=== PATIENT | male | born 1930 | race Caucasian/White ===

== ENCOUNTER 2018-09-07 14:33 | Observation (INO) ==
[2018-09-07] MEDS ORDERED: 0.9 % Sodium Chloride 1,000 ML IVC ONE (15:37)
--- NOTE | 2018-09-07 15:40 | Emergency Department Note ---
Disposition Clinical Impression: Generalized weakness, Unable to ambulate Disposition: Admitted As Inpatient Condition: Fair Referrals: Nancy Shepherd [employer] [Primary Care Provider] - Forms: ED Satisfaction Letter, Work/School Release Time of Disposition: 17:19 General Adult HPI - General Chief complaint: ED General Medical Stated complaint: ELEVATED BP Time Seen by Provider: 09/07/18 15:14 Source: patient, family Mode of arrival: EMS Limitations: no limitations Nursing Notes Reviewed: Yes Vital Signs Reviewed: Yes - History of Present Illness HPI Narrative: Patient presents with his from assisted living. Reports that there was general weakness since this morning. They went to lunch and he was having typically walking and having to be helped. There is no report of a focal neurologic deficit but rather some generalized weakness. He got to the table and he was all shaky. He wanted to go to the bathroom so they got him up to walk to the bathroom is really unsteady and he got to the bathroom and sat down but could not get himself up off the toilet and had to be helped up. Try to walk back to the other room but seemed to tire out shelter so they had to get a chair and sat him down and then they called the squad. does not report patient had been sick in any way over the past few days. Patient has some dementia and is not real helpful with answers but says that he normally has some confusion although its seems to be a little bit worse today. Definitely he does not have the weakness that he has today. Pt Subjective Complaint: Generalized weakness Onset (ago): hour(s) (Since late this morning) Location: other (Generalized) Pain Severity: severe (Had trouble walking and could not get himself up off the toilet.) Pain Scale: 0 Consistency: constant Improves with: nothing Worsens with: movement Associated symptoms: Reports: denies other symptoms Treatments Prior to Arrival: none - Related Data Home Medications Medication Instructions Recorded Confirmed Lisinopril [Zestril] 40 mg PO DAILY 07/28/16 09/07/18 Multivitamin [Multivitamins] 1 tab PO DAILY 07/28/16 09/07/18 Oxybutynin Chloride [Ditropan Xl] 5 mg PO DAILY 07/28/16 09/07/18 Terazosin HCl 2 mg PO HS 07/28/16 09/07/18 Aspirin [Lo-Dose Aspirin EC] 81 mg PO DAILY 09/07/18 09/07/18 Lansoprazole [Prevacid] 15 mg PO QAM 09/07/18 09/07/18 Metoprolol [Lopressor] 25 mg PO DAILY 09/07/18 09/07/18 Allergies Allergy/AdvReac Type Severity Reaction Status Date / Time atorvastatin [From Lipitor] AdvReac Nausea Verified 05/16/17 10:54 All systems ED: reviewed and negative except as stated. Constitutional: Denies: fever, chills ENT ED: Denies: ear pain, throat pain, congestion Cardiovascular: Denies: chest pain, palpitations Respiratory: Denies: cough, dyspnea, wheezes Gastrointestinal: Denies: abdominal pain, nausea, vomiting, diarrhea Musculoskeletal: Denies: back pain Integumentary: Denies: rash Neurological: Reports: weakness (Generalized). Denies: headache Past Medical History - Past Medical History Attestation: Yes The following information was validated with the patient. Source: old records reviewed, obtained from family, nursing notes reviewed Medical history: Reports: hypertension Psychiatric history: Reports: no psych history - Social History Smoking Status: Never smoker Smokeless Tobacco Status: No Alcohol use: Reports: none Drug use: Reports: none Physical Exam - General Limitations: no limitations General appearance: alert, in no apparent distress - Head Head exam: atraumatic, normocephalic, normal inspection - Eye Eye exam: Present: normal appearance, PERRL, EOMI. Absent: scleral icterus, conjunctival injection - ENT ENT exam: normal exam, normal oropharynx, mucous membranes moist, normal external ear exam - Neck Neck exam: Present: normal inspection, full ROM. Absent: meningismus - Chest Chest inspection: Present: normal inspection, symmetric chest wall rise. Absent: tenderness - Respiratory Respiratory exam: Present: normal lung sounds bilaterally. Absent: respiratory distress, wheezes - Cardiovascular Cardiovascular exam: Present: regular rate, normal rhythm, normal heart sounds - Abdominal Exam Abdominal exam: Present: soft, Non-Tender, normal bowel sounds. Absent: mass, pulsatile mass - Extremities Exam Extremities exam: Present: normal inspection. Absent: pedal edema - Neurological Exam Neurological exam: Present: alert, oriented X3, CN II-XII intact. Absent: motor sensory deficit - Psychiatric Psychiatric exam: Present: normal affect, normal mood - Skin Skin exam: Present: warm, dry. Absent: rash Course Course Narrative: Patient presents with generalized weakness. Also found have elevated blood pressure earlier today and that is continued here in the department. He does not register focal complaint in the white does not note any prodromal illnesses. He just got this generalized weakness today that was severe enough that he could not get himself up off the toilet and have her through the house he had to stop and sit down in a chair because he could not make it. My physical exam does not reveal any focal neurologic deficit to be concerning for stroke. The examination does not identify anything else either. I am going to a workup for general weakness. Disposition will be based on diagnostic results and reevaluation. - Reevaluation(s) Reevaluation #1: Patient remains weak. We tried to get him up to use the bedside commode he needed help just to do that. At this point I do not have a clear etiology for his weakness. He does have an elevated BNP and some vascular congestion on the chest x-ray but clinically there is no indication of overt heart failure. His EKG looks okay and his heart enzymes are negative. He does have an elevated white count and a temperature of 99 8 but I do not find any focus of infection on exam and his chest x-ray was clear for infection and his urine was clear. I did do blood cultures. He is too weak to go home but the cause of his weakness is yet to declare itself so he needs to be admitted to the hospital. I have already spoken with the hospitalist who is accepted him for admission. Time: 17:18 - Consultations Consultation #1: Dr. Amaya, hospitalist - I discussed the case with the hospitalist. He is accepting the patient for admission to the hospital. Time: 17:15 Vital Signs Temperature 99.8 F H 09/07/18 14:34 Pulse Rate 82 09/07/18 14:34 Respiratory Rate 16 09/07/18 14:34 Blood Pressure 184/83 09/07/18 14:34 O2 Sat by Pulse Oximetry 94 09/07/18 14:34 Temperature 99.6 F 09/07/18 17:11 Pulse Rate 73 09/07/18 17:11 Respiratory Rate 18 09/07/18 17:11 Blood Pressure 195/80 09/07/18 17:11 O2 Sat by Pulse Oximetry 95 09/07/18 17:11 Oxygen Delivery Oxygen Delivery Room Air Medical Decision Making - Medical Records Medical records reviewed: Yes I reviewed the patient's medical records. - Lab Data Lab results reviewed: Yes I reviewed the patient's lab results. Result diagrams: 09/07/18 16:04 09/07/18 16:04 Lab Results 09/07/18 09/07/18 09/07/18 Range/Units 16:04 16:04 16:04 WBC 15.8 H (4.3-11.1) K/mcL RBC 3.61 L (4.19-5.50) M/mcL Hgb 11.4 L (12.9-16.9) g/dL Hct 33.1 L (37.5-50.1) % MCV 91.7 (83.0-100.0) fL MCH 31.6 (28.0-33.3) pg MCHC 34.4 (31.6-35.5) g/dL RDW 12.4 (11.5-14.5) % Plt Count 209 (140-400) K/mcL MPV 9.5 (9.4-12.4) fL Immature Gran % 2.0 (0-4) % Seg Neutrophils % 81.3 % Lymphocytes % 3.3 % Monocytes % 13.3 % Eosinophils % 0.0 % Basophils % 0.1 % Neutrophils # 12.9 H (1.6-8.9) K/mcL Lymphocytes # 0.5 L (0.6-4.6) K/mcL Monocytes # 2.1 H (0.0-1.3) K/mcL Eosinophils # 0.0 (0.0-0.6) K/mcL Basophils # 0.0 (0.0-0.2) K/mcL Sodium 130 L (136-145) mEq/L Potassium 3.8 (3.5-5.1) mEq/L Chloride 95 L (98-107) mEq/L Carbon Dioxide 26 (23-29) mEq/L BUN 21 (8-23) mg/dL Creatinine 1.03 (0.70-1.30) mg/dL Est GFR ( Amer) > 60 (> 60) Est GFR (Non-Af Amer) > 60 (> 60) BUN/Creatinine Ratio 20 (6-26) Glucose 122 H (70-105) mg/dL Calculated Osmolality 274 L (280-300) Lactic Acid 0.6 (0.5-2.2) mmol/L Calcium 9.1 (8.6-10.3) mg/dL Troponin I < 0.03 (< 0.04) ng/mL B-Natriuretic Peptide (Less than 100) pg/mL Urine Color (Yellow) Urine Clarity (Clear) Urine pH (5.0-8.0) pH Units Ur Specific [place] (1.010-1.025) Urine Protein (Neg-Trace) mg/dL Urine Glucose (UA) (Normal) mg/dL Urine Ketones (Negative) mg/dL Urine Blood (Negative) Urine Nitrite (Negative) Urine Bilirubin (Negative) Urine Urobilinogen (Normal) mg/dL Ur Leukocyte Esterase (Negative) Urine Microscopic RBC (0-3) per hpf Urine Microscopic WBC (0-3) per hpf Ur Squamous Epith Cells (None-Few) per lpf Urine Mucus (Few) Ur Culture Indicated? (NO) 09/07/18 09/07/18 Range/Units 16:04 16:57 WBC (4.3-11.1) K/mcL RBC (4.19-5.50) M/mcL Hgb (12.9-16.9) g/dL Hct (37.5-50.1) % MCV (83.0-100.0) fL MCH (28.0-33.3) pg MCHC (31.6-35.5) g/dL RDW (11.5-14.5) % Plt Count (140-400) K/mcL MPV (9.4-12.4) fL Immature Gran % (0-4) % Seg Neutrophils % % Lymphocytes % % Monocytes % % Eosinophils % % Basophils % % Neutrophils # (1.6-8.9) K/mcL Lymphocytes # (0.6-4.6) K/mcL Monocytes # (0.0-1.3) K/mcL Eosinophils # (0.0-0.6) K/mcL Basophils # (0.0-0.2) K/mcL Sodium (136-145) mEq/L Potassium (3.5-5.1) mEq/L Chloride (98-107) mEq/L Carbon Dioxide (23-29) mEq/L BUN (8-23) mg/dL Creatinine (0.70-1.30) mg/dL Est GFR ( Amer) (> 60) Est GFR (Non-Af Amer) (> 60) BUN/Creatinine Ratio (6-26) Glucose (70-105) mg/dL Calculated Osmolality (280-300) Lactic Acid (0.5-2.2) mmol/L Calcium (8.6-10.3) mg/dL Troponin I (< 0.04) ng/mL B-Natriuretic Peptide 612 H (Less than 100) pg/mL Urine Color Yellow (Yellow) Urine Clarity Clear (Clear) Urine pH 7.5 (5.0-8.0) pH Units Ur Specific [place] 1.020 (1.010-1.025) Urine Protein 100 H (Neg-Trace) mg/dL Urine Glucose (UA) Normal (Normal) mg/dL Urine Ketones Trace H (Negative) mg/dL Urine Blood Trace-lysed H (Negative) Urine Nitrite Negative (Negative) Urine Bilirubin Negative (Negative) Urine Urobilinogen Normal (Normal) mg/dL Ur Leukocyte Esterase Negative (Negative) Urine Microscopic RBC 3-5 H (0-3) per hpf Urine Microscopic WBC 0-3 (0-3) per hpf Ur Squamous Epith Cells Few (None-Few) per lpf Urine Mucus Few (Few) Ur Culture Indicated? NO (NO) - Radiology Data Radiology results reviewed: Yes I reviewed the patient's radiology results. - EKG Data EKG #1 EKG attestation: Yes I reviewed and interpreted this EKG. EKG results narrative: Twelve-lead EKG performed at 2:45 PM. Ordered, reviewed and interpreted by ED physician shows sinus rhythm at a rate of 82. Normal axis. Good R-wave progression across the precordium. No acute ischemic changes. Intervals are within normal limits.
[2018-09-07 16:12] LABS: Basophils % 0.1 %; Hematocrit 33.1 % (37.5-50.1); Hemoglobin 11.4 g/dL (12.9-16.9); Lymphocytes # 0.5 K/mcL (0.6-4.6); Lymphocytes % 3.3 %; Mean Corpuscular HGB Conc 34.4 g/dL (31.6-35.5); Mean Corpuscular Hemoglobin 31.6 pg (28.0-33.3); Mean Corpuscular Volume 91.7 fL (83.0-100.0); Mean Platelet Volume 9.5 fL (9.4-12.4); Monocytes # 2.1 K/mcL (0.0-1.3); Monocytes % 13.3 %; Neutrophils # 12.9 K/mcL (1.6-8.9); Platelet Count 209 K/mcL (140-400); Red Blood Count 3.61 M/mcL (4.19-5.50); Red Cell Distribution Width 12.4 % (11.5-14.5); Segmented Neutrophils % 81.3 %
[2018-09-07 16:31] LABS: BUN/Creatinine Ratio 20 (6-26); Blood Urea Nitrogen 21 mg/dL (8-23); Calcium 9.1 mg/dL (8.6-10.3); Carbon Dioxide 26 mEq/L (23-29); Chloride 95 mEq/L (98-107); Glucose 122 mg/dL (70-105); Osmolality,Calculated 274 (280-300); Potassium 3.8 mEq/L (3.5-5.1); Sodium 130 mEq/L (136-145); eGFR For Non-African Americans > 60 (> 60)
[2018-09-07 16:32] LABS: Troponin I < 0.03 ng/mL (< 0.04)
[2018-09-07 17:03] LABS: Bilirubin,Urine Negative (Negative); Blood,Urine Trace-lysed (Negative); Clarity,Urine Clear (Clear); Color,Urine Yellow (Yellow); Glucose,Urine (UA) Normal (Normal); Ketones,Urine Trace mg/dL (Negative); Leukocyte Esterase,Urine Negative (Negative); Nitrite,Urine Negative (Negative); PH,Urine 7.5 pH Units (5.0-8.0); Protein,Urine 100 mg/dL (Neg-Trace); Urobilinogen,Urine Normal (Normal)
[2018-09-07 17:11] LABS: Mucus,Urine Few (Few); Squamous Epithelial Cell,Urine Few per lpf (None-Few); WBC,Urine 0-3 per hpf (0-3)
[2018-09-07] MEDS ORDERED: Lisinopril 20 MG TABLET PO STA (17:14)
[2018-09-07] MEDS ORDERED: Naloxone 0.4 MG/ML INJ IVP PRN (17:55)
[2018-09-07] MEDS ORDERED: Levofloxacin 750 MG/150 ML 750 MG/150 ML BAG IVPB ONE (17:57)
[2018-09-07] MEDS ORDERED: Acetaminophen 325 MG TABLET PO PRN (18:01)
[2018-09-08] MEDS: Lisinopril 20 MG TABLET PO SCH (08:46)
[2018-09-08] MEDS: Multivit/Ca/Min/Fe/FA 1 TAB TABLET PO SCH (08:46)
[2018-09-08] MEDS: Aspirin Enteric Coated 81 MG Tablet PO SCH (08:46)
--- NOTE | 2018-09-08 12:28 | Internal Med History&Physical ---
Date of Encounter: 09/08/18 Time of Encounter: 11:45 Assessment and Plan (1) Generalized weakness Current visit: Yes Status: Acute Suspect multifactorial etiology including underlying debility with deconditioning, infection, and possible heart failure. He will have PT and OT evaluation. (2) Neutrophilic leukocytosis Current visit: Yes Status: Acute Etiology not obvious. He had fever of 100.4 F last evening with small amount of diarrhea possibly indicating viral gastroenteritis. Recheck labs in a.m. (3) Anemia Current visit: Yes Status: Acute Present intermittently since January 2015 labs. Anemia testing will be done. Qualifiers: Anemia type: unspecified type Qualified Code(s): D64.9 - Anemia, unspecified (4) Elevated brain natriuretic peptide (BNP) level Current visit: Yes Status: Acute Recheck labs in a.m. Will defer on echocardiogram at this time since he is asymptomatic and plans to move to [place] within the next 5 days. (5) Parkinsons disease Current visit: Yes Status: Acute Medication not needed at this time. PT and OT evaluation will be done to assess stability, strength, and ambulatory ability. (6) Memory loss Current visit: Yes Status: Acute He and his agree his memory has declined in the past year. MMSE will be ordered. Internal Medicine - H&P: HPI Chief complaint: Weakness Admitted From: Emergency Dept Plans for Post Hospital Care: Home History of present illness: Mr. Clifton is a 88 year old male who was brought to emergency room after his reports he had noticeable weakness onset approximately lunchtime the day of admission. He had observable "shaking" while trying to feed himself soup. He had difficulty ambulating to the bathroom and could not stand up from the toilet in his own strength. He was brought to emergency room and evaluated and was found to have leukocytosis with left shift, anemia, and elevated BN peptide. He was admitted to [facility] floor for ongoing care needs. He denies previous similar episodes. He had evidence of 2 small previous CVAs on head CT in emergency room. He was unaware clinically of these past strokes. Brain MRI 04/09/2017 did not show these lesions. He was placed on aspirin 81 mg daily by a neurologist in March 2017 for CVA prophylaxis. He denies seizures or syncope. He reports he has fallen twice in the past year. He t ypically uses a cane for ambulation. Past Med Surg Social Fam HX - Past Medical History Medical history: hypertension Psychiatric history: no psych history - Past Surgical History Additional surgical history: bilat shoulder surgeries. hernia repair. some kind of prostate surgery - Social History Smoking Status: Never smoker Smokeless Tobacco Status: No Alcohol use: none Drug use: none Internal Medicine - H&P: Meds Lisinopril [Zestril] 40 mg PO DAILY 07/28/16 [History] Multivitamin [Multivitamins] 1 tab PO DAILY 07/28/16 [History] Oxybutynin Chloride [Ditropan Xl] 5 mg PO DAILY 07/28/16 [History] Terazosin HCl 2 mg PO HS 07/28/16 [History] Acetaminophen [Pain Relief] 500 mg PO HS 09/07/18 [History] Aspirin [Lo-Dose Aspirin EC] 81 mg PO DAILY 09/07/18 [History] Lansoprazole [Prevacid] 15 mg PO QAM 09/07/18 [History] Metoprolol [Lopressor] 25 mg PO DAILY 09/07/18 [History] Psyllium Husk [Metamucil] 5 ml PO DAILY 09/07/18 [History] Allergy/AdvReac Type Severity Reaction Status Date / Time atorvastatin [From Lipitor] AdvReac Nausea Verified 05/16/17 10:54 All Systems PM: A 10-system review of systems was performed and is negative for pertinent findings except as documented above in the HPI. Review of systems: Gen.: He states his weight has been stable for the past year Cardiovascular: He has history of hypertension but denies AL heart failure angina DVT or pulmonary embolus Respiratory: He smoked from age [age] never exceeding 1 pack per day. He denies chronic lung disease and does not use home oxygen. GI: He denies disorders of his liver gallbladder or exocrine pancreas : He has OAB and presumed BPH. He denies other kidney bladder or prostate disorders. Neurologic: As per history of present illness Endocrine: He has history of hyperlipidemia but could not tolerate Lipitor. He denies known thyroid disease or diabetes Hematology/oncology: He was unaware he had anemia on labs in emergency room. 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 He denies gout or other bone joint or muscle disorders. - Constitutional Vitals: Temp Pulse Resp BP Pulse Ox 98.6 F 66 14 138/68 96 09/08/18 11:11 09/08/18 11:11 09/08/18 11:11 09/08/18 11:11 09/08/18 11:11 Exam: Gen.: He is a well-developed lean male lying in bed who appears in no severe distress at present time HEENT: Head is atraumatic and normocephalic. Eyes: EOMI. There is no scleral icterus. Mouth: Mucosa is moist. Neck: Supple and nontender. There is no thyromegaly or adenopathy noted. Heart: Regular without murmurs gallops or ectopics Lungs: No wheezes or crackles are heard. Abdomen: Soft and nontender. No masses or guarding are noted. Extremities: There is no cyanosis edema or clubbing noted. Dorsalis pedis and posttibial pulses are trace to 1+ palpable bilaterally. Neurologic: Mental status: He is awake and talkative and seems to be a fair to good historian. He frequently refers questions to his at bedside. He is able to do simple money math. Cranial nerves: Smile is symmetric. Forehead wrinkles bilaterally. Tongue protrudes midline. EOMI. Motor: There is no pronator drift. He has cogwheeling and rigidity on passive range of motion at his wrist and elbows. He has positive Myerson sign. Cerebellar: Finger to nose is intact bilaterally. Skin: Warm and dry Internal Med - H&P Results - Labs CBC & Chem 7: 09/07/18 16:04 09/07/18 16:04 Labs: Short CBC 09/07/18 Range/Units 16:04 WBC 15.8 H (4.3-11.1) K/mcL Hgb 11.4 L (12.9-16.9) g/dL Hct 33.1 L (37.5-50.1) % Plt Count 209 (140-400) K/mcL Neutrophils # 12.9 H (1.6-8.9) K/mcL BMP 09/07/18 16:04 Sodium 130 L Potassium 3.8 Chloride 95 L Carbon Dioxide 26 BUN 21 Creatinine 1.03 Glucose 122 H Calcium 9.1 Cardiac Enzymes 09/07/18 09/07/18 09/08/18 Range/Units 16:04 21:47 03:58 Troponin I < 0.03 < 0.03 < 0.03 (< 0.04) ng/mL 09/08/18 Range/Units 10:19 Troponin I < 0.03 (< 0.04) ng/mL Urine 09/07/18 Range/Units 16:57 Urine Color Yellow (Yellow) Urine Clarity Clear (Clear) Urine pH 7.5 (5.0-8.0) pH Units Ur Specific [place] 1.020 (1.010-1.025) Urine Protein 100 H (Neg-Trace) mg/dL Urine Glucose (UA) Normal (Normal) mg/dL - Impressions ITS Impressions Chest X-Ray 09/07/18 15:36 IMPRESSION: Cardiomegaly with mild pulmonary vascular congestion D/ / Jadon Miller MD / Jadon Miller MD Interpreting Provider: Jadon Miller MD Head CT 09/07/18 15:36 IMPRESSION: 1. No acute intracranial process identified. 2. Diffuse cerebral volume loss and moderate to severe chronic small vessel ischemic changes. 3. Remote lacunar infarct within the right thalamus. 4. Remote right cerebellar infarct. D/ / Serafin Mehta MD / Serafin Mehta MD Interpreting Provider: Serafin Mehta MD
--- NOTE | 2018-09-08 14:25 | Electrocardiograph Report ---
[place] [id number] Test Date: 2018-09-07 Pat Name: Deepak Clifton Department: EDP-11 Room: [facility] Gender: M Mental Retardation Aide: : 1930 Requested By: Philip Castaneda Order Number: [id number] Reading MD: Jewels Abbott Measurements Intervals [place] Rate: 82 P: 82 VA: 251 QRS: 79 QRSD: 101 T: 72 QT: 374 QTc: 437 Interpretive Statements Sinus rhythm with first degree AV block RSR' in V1 or V2, probably normal variant Electronically Signed On 09-08-2018 14:24:20 EST by Jewels Abbott
[2018-09-08 17:39] LABS: % Iron Saturation 10 % (20-55); Iron 21 mcg/dL (65-175); Transferrin 150 mg/dL (203-362)
[2018-09-08 17:57] LABS: Ferritin 194 ng/mL (20-250)
[2018-09-08 18:09] LABS: Vitamin B12 746 pg/mL (250-1100)
[2018-09-08 18:11] LABS: Folate > 22.3 ng/mL (3.0-16.0)
[2018-09-09] MEDS: Multivit/Ca/Min/Fe/FA 1 TAB TABLET PO SCH (07:53)
[2018-09-09] MEDS: Aspirin Enteric Coated 81 MG Tablet PO SCH (07:53)
[2018-09-09] MEDS: Lisinopril 20 MG TABLET PO SCH (07:53)
[2018-09-09 08:15] LABS: Basophils % 0.1 %; Eosinophils % 0.1 %; Hematocrit 31.4 % (37.5-50.1); Hemoglobin 10.8 g/dL (12.9-16.9); Immature Granulocytes % 1.8 % (0-4); Lymphocytes # 1.1 K/mcL (0.6-4.6); Lymphocytes % 10.4 %; Mean Corpuscular HGB Conc 34.4 g/dL (31.6-35.5); Mean Corpuscular Hemoglobin 31.6 pg (28.0-33.3); Mean Corpuscular Volume 91.8 fL (83.0-100.0); Mean Platelet Volume 9.7 fL (9.4-12.4); Monocytes # 1.6 K/mcL (0.0-1.3); Monocytes % 15.9 %; Neutrophils # 7.3 K/mcL (1.6-8.9); Platelet Count 201 K/mcL (140-400); Red Blood Count 3.42 M/mcL (4.19-5.50); Red Cell Distribution Width 12.5 % (11.5-14.5); Segmented Neutrophils % 71.7 %
[2018-09-09 08:41] VITALS: BP 132/74
[2018-09-09 10:14] LABS: BUN/Creatinine Ratio 21 (6-26); Blood Urea Nitrogen 22 mg/dL (8-23); Calcium 8.3 mg/dL (8.6-10.3); Carbon Dioxide 25 mEq/L (23-29); Chloride 100 mEq/L (98-107); Glucose 117 mg/dL (70-105); Osmolality,Calculated 278 (280-300); Potassium 3.5 mEq/L (3.5-5.1); Sodium 132 mEq/L (136-145); eGFR For Non-African Americans > 60 (> 60)
--- NOTE | 2018-09-09 11:33 | Discharge Summary ---
Orders not resulted at time of discharge: Pending orders 09/07/18 16:04 Culture,Blood [BC] Stat Date of Encounter: 09/09/18 Time of Encounter: 11:20 - Discharge Diagnosis (1) Orthostatic hypotension Priority: Primary Status: Acute (2) Generalized weakness Priority: Secondary Status: Acute (3) Neutrophilic leukocytosis Priority: Secondary Status: Resolved (4) Anemia Priority: Secondary Status: Acute Qualifiers: Anemia type: iron deficiency Iron deficiency anemia type: unspecified iron deficiency Qualified Code(s): D50.9 - Iron deficiency anemia, unspecified (5) Elevated brain natriuretic peptide (BNP) level Priority: Secondary Status: Acute (6) Parkinsons disease Priority: Secondary Status: Chronic (7) Memory loss Priority: Secondary Status: Chronic Hospital course: Mr. Clifton is a 88 year old male who was brought to emergency room after his reports he had noticeable weakness onset approximately lunchtime the day of admission. He had observable "shaking" while trying to feed himself soup. He had difficulty ambulating to the bathroom and could not stand up from the toilet in his own strength. He was brought to emergency room and evaluated and was found to have leukocytosis with left shift, anemia, and elevated BN peptide. He was admitted to [facility] for ongoing care needs. Initial orders were written by the emergency room physician. I saw him on September 08 and performed a history and physical. Orthostatic vital signs done the morning of September 09 showed blood pressure decreasing from 132/74 lying to 104/80 sitting to 99/65 standing. Heart rate increased from 114 lying to 137 sitting to 142 standing. Lisinopril will be decreased to 20 mg daily and terazosin will be discontinued. Metoprolol will be changed to Toprol-XL 50 mg daily. His PCP can monitor him on this regimen and adjust doses/medications as needed. Follow-up labs on September 09 showed WBC normalized to 10.2 with resolution of left shift. He had no further diarrhea after admission and no further workup or treatment will be done at this time. Anemia testing showed iron 21, transferrin saturation 10%, transferrin 150, ferritin 194, B12 746, and folate> 22.3. Aspirin will be decreased to 81 mg every other day. He will be started on ferrous sulfate with ascorbic acid to facilitate absorption. PPI may need to be discontinued if absorption is insufficient. He appeared clinically to have Parkinson's disease but does not require medication. This can be monitored by his PCP. MMSE testing showed scored 27/30. PT and OT evaluations were done. He had satisfactory ambulatory skills. On September 09 he was stable for discharge home. He will follow with a PCP in [place]. - Time Spent with Patient Total time spent providing and/or coordinating discharge services: - Discharge Medications Prescriptions: Ascorbic Acid [Vitamin C] 500 mg PO DAILY #30 tablet.er Ferrous Sulfate 325 mg PO DAILY #30 tablet Metoprolol XL (24 HR) Succ [Toprol XL] 50 mg PO DAILY #30 tab.er.24h Home Medications: Multivitamin [Multivitamins] 1 tab PO DAILY 07/28/16 [History] Oxybutynin Chloride [Ditropan Xl] 5 mg PO DAILY 07/28/16 [History] Acetaminophen [Pain Relief] 500 mg PO HS 09/07/18 [History] Lansoprazole [Prevacid] 15 mg PO QAM 09/07/18 [History] Psyllium Husk [Metamucil] 5 ml PO DAILY 09/07/18 [History] Ascorbic Acid [Vitamin C] 500 mg PO DAILY #30 tablet.er 09/09/18 [Rx] Aspirin [Lo-Dose Aspirin EC] 81 mg PO Q48H #0 09/09/18 [Rx] Ferrous Sulfate 325 mg PO DAILY #30 tablet 09/09/18 [Rx] Lisinopril [Zestril] 20 mg PO DAILY #0 09/09/18 [Rx] Metoprolol XL (24 HR) Succ [Toprol XL] 50 mg PO DAILY #30 tab.er.24h 09/09/18 [Rx] Allergies/Adverse Reactions: Allergy/AdvReac Type Severity Reaction Status Date / Time atorvastatin [From Lipitor] AdvReac Nausea Verified 05/16/17 10:54 Date of admission: 09/07/18 17:24 Primary care physician: Nancy Shepherd CNP Consults: 09/07/18 18:45 Consult to Denial Resolution Specialist [CONS] Routine Reason for SW Consult: Discharge Planning 09/08/18 12:24 Consult to Occupational Therapy [CONS] Routine Comment: Evaluate, develop and implement POC Reason for Consult: weakness Does patient have active BEDREST order?: No Is patient medically & hemodynamically stable?: Yes Patient assessed for mobility or mobilized this visit?: Yes Consult to Physical Therapy [CONS] Routine Comment: Evaluate, develop and implement POC Reason for Consult: weakness Does patient have active BEDREST order?: No Is patient medically & hemodynamically stable?: Yes Patient assessed for mobility or mobilized this visit?: Yes - Constitutional Vitals: Temp Pulse Resp BP Pulse Ox 98.5 F 114 18 132/74 90 09/09/18 08:38 09/09/18 08:41 09/09/18 08:38 09/09/18 08:41 09/09/18 08:38 - Patient Status Disposition: Home, Self-Care Condition: Fair - Discharge Instructions - Diet and Activity Activity: as per physical therapy, resume usual activities as tolerated Diet: advance to your usual diet
== END 2018-09-09 14:00 | disposition home or self-care (01) ==
LOC: INPPIK 14:33 → EMEROOPIK 14:33 → INPPIK 17:41
PROVIDERS: ADMIT Internal Medicine; ATTEND Internal Medicine